=== PATIENT | male | born 1975 | race African-American/Black ===

== ENCOUNTER → 2020-10-12 | Outpatient (CLI) | payer OTHER | LOC: SJCVCIMAG 09:22 | PROVIDERS: ATTEND Internal Medicine | DX: R42 Dizziness and giddiness (principal); R06.00 Dyspnea, unspecified; R00.2 Palpitations; R07.9 Chest pain, unspecified; E78.5 Hyperlipidemia, unspecified; I10 Essential (primary) hypertension ==

== ENCOUNTER → 2020-11-03 | Outpatient (CLI) | payer OTHER | LOC: RAD 07:38 | PROVIDERS: ATTEND Internal Medicine | DX: R06.09 Other forms of dyspnea (principal) ==